=== PATIENT | male | born 1965 ===

== ENCOUNTER → 2020-05-04 09:30 | Outpatient (BNVA) | payer BC, SELFPAY | PROVIDERS: Family Provider Family Medicine; PCP Family Medicine; Visit Provider Family Medicine | DX: E55.9 Vitamin D deficiency, unspecified (principal); E78.00 Pure hypercholesterolemia, unspecified; Z23 Encounter for immunization | CPT/HCPCS: 80053; 80061; 82306; 85025 ==

== ENCOUNTER → 2020-05-06 09:05 | Outpatient (BNVA) | payer BC, SELFPAY | PROVIDERS: Family Provider Family Medicine; PCP Family Medicine; Visit Provider Family Medicine | DX: Z12.11 Encounter for screening for malignant neoplasm of colon (principal) | CPT/HCPCS: 82270; G0328 ==

== ENCOUNTER 2023-01-14 06:18 | Emergency (ER) | payer OTHER, SELFPAY ==
[2023-01-14 06:22] VITALS: BP 131/77; PULSE 81; RESP 18; TEMP 36.6; O2SAT 96; BMI 26.2
[2023-01-14 06:28] VITALS: BP 131/77; RESP 16; O2SAT 96
--- NOTE | 2023-01-14 06:34 | XRR_ITS ---
PROCEDURE INFORMATION: Exam: XR Right Shoulder Exam date and time: 01/14/2023 6:44 AM Age: 57 years old Clinical indication: Injury or trauma; Fall; Work related; Blunt trauma (contusions or hematomas); Right; Patient HX: Patient tripped and fell landing onto RT shoulder. C/O pain. TECHNIQUE: Imaging protocol: Radiologic exam of the right shoulder. Views: 2 or more views. COMPARISON: No relevant prior studies available. FINDINGS: Bones/joints: The bones are generally osteopenic. There is no evidence for acute fracture. There is deformity of the distal clavicle which likely represents a chronic fracture. Calcific tendinopathy is noted about the coracoacromial joint. Soft tissues: Normal. XR/XR shoulder RT min 2V* [id number] IMPRESSION: No acute process, right shoulder.
--- NOTE | 2023-01-14 06:41 | W.ED.EXTPRO ---
HPI - Extremity Problem General: Chief complaint: Extremity Injury, Upper Stated complaint: Right shoulder injury Time Seen by Provider: 01/14/23 06:19 Source: patient Mode of arrival: ambulatory History of Present Illness: 57-year-old male presents emergency room with complaints of right shoulder pain. He is working today and went to pull some items off of a shelf and slipped. He did not have anything landed on him but he did not land on his right shoulder. He has remote previous injury to the shoulder in his late 20s no recent injury no previous surgeries he felt a popping sensation is uncomfortable but he has no obvious deformity. He has not taken anything for it at this point. It happened this morning just prior to arrival. He did not strike his head no loss consciousness no other injuries at the time of the fall. MD Complaint: joint pain Onset (ago): minute(s) Pain Consistency: constant Location: right (Shoulder) Relieving factors: rest Exacerbating factors: range of motion and palpation Associated symptoms: Deny chest pain, fever(s), myalgias, rash or short of breath Review of Systems Const: Denies: fever(s), chills, fatigue or malaise Card: Denies: chest pain Resp: Denies: dyspnea or non-productive cough GI: Denies: abdominal pain, nausea or vomiting : Denies: flank pain, dysuria, urinary frequency or urinary urgency Skin/Breast: Denies: rash or pruritus PFS ED PFSH: Medical History Hypercholesteremia Vitamin D deficiency Social History Smoking and tobacco status: never smoked Alcohol intake: never Substance/Drug Use: never Physical Exam Const: GENERAL APPEARANCE: cooperative and comfortable ORIENTATION/CONSCIOUSNESS: Yes awake, Yes oriented to person, Yes oriented to place and Yes oriented to time HENMT: COMMON NORMALS: normocephalic, atraumatic and hearing grossly normal bilaterally HEAD & SCALP: normocephalic and atraumatic Resp: COMMON NORMALS: normal respiratory effort, No retractions, No use of accessory muscles and clear to auscultation bilaterally AUSCULTATION: clear to auscultation bilaterally Cardio: COMMON NORMALS: regular rate, regular rhythm and No murmurs present (Cardio) RATE: regular rate RHYTHM: regular rhythm Extremity: COMMON NORMALS: normal to inspection, capillary refill normal, no clubbing, cyanosis or edema, no calf tenderness and no pedal edema OTHER: Examination of the shoulder some limited external rotation no significant pain AB duction flexion normal. No apprehension sign no deformity. Palpation of the clavicle intact no sign of anterior shoulder dislocation. Neuro: SENSORIUM/ORIENTATION: Yes oriented to person, Yes oriented to place and Yes oriented to time Skin: COMMON NORMALS: no rashes or lesions noted GENERAL SKIN EXAM: no rashes or lesions noted Course Vital Signs: Vital signs: Vital Signs Temperature 97.8 F 01/14/23 06:22 Pulse Rate 81 01/14/23 06:22 Respiratory Rate 16 01/14/23 06:28 Blood Pressure 131/77 01/14/23 06:28 Pulse Oximetry 96 01/14/23 06:28 MDM - Extremity (Nontraumatic) Medical Decision Making X-ray unremarkable, no fracture no dislocation. But is mostly soft tissue injury. I do not believe based on his exam at this time that there is a rotator cuff tear probably some irritation and may be some bursitis from impact. He can use anti-inflammatories ice as needed if not improving follow-up with his primary care doctor. Discharge Plan Discharge Patient Disposition: Home Clinical Impression: Sprain of right shoulder Condition: Stable Prescriptions: New diclofenac sodium 75 mg tablet,delayed release (DR/EC) 75 mg PO Q12H PRN (Reason: pain) Qty: 20 0RF No Action multivitamin with minerals [Men's One Daily] Tablet 1 tab PO DAILY cholecalciferol (vitamin D3) 1,250 mcg (50,000 unit) capsule PO ascorbate calcium (vitamin C) 500 mg tablet 500 mg PO DAILY ascorbic acid (vitamin C) 1,000 mg tablet extended release 1,000 mg PO Q12H ginkgo biloba 120 mg tablet 120 mg PO DAILY Rx Instructions: give with meal/snack azithromycin 250 mg tablet See Rx Instructions PO .COMPLEX Qty: 6 0RF Rx Instructions: For 250 mg dose pack: take 500 mg today (day 1), then 250 mg for 4 days (days 2-5) PO codeine-guaifenesin [Maxi-Tuss AC] 10-100 mg/5 mL liquid 5 ml PO Q6H PRN (Reason: allergy symptoms) Qty: 237 0RF Discharge Orders: Discharge ED (Routine); Ordered 01/14/23 Ordered By: Heriberto Zarate Referrals: Estela Ibarra MD [Primary Care Provider] - Discharge Diet: Usual diet Discharge Activity: Increase activity as tolerated Patient Instructions: Shoulder Sprain (ED), Opioid Safety, Pain Management Activity Restrictions/Additional Instructions: Follow-up with your primary care doctor if not improving Coding Level of Care Code ED 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
[2023-01-14] MEDS: ibuprofen 800 mg tablet PO (06:43)
== END 2023-01-14 07:44 | disposition home or self-care (01) ==
PROVIDERS: Emergency Provider Family Medicine; PCP Family Medicine
DX: S43.401A Unspecified sprain of right shoulder joint, initial encounter (principal); W18.30XA Fall on same level, unspecified, initial encounter; Y93.89 Activity, other specified; Y92.89 Other specified places as the place of occurrence of the external cause; Y99.0 Civilian activity done for income or pay
CPT/HCPCS: 73030; 99283